=== PATIENT | female | born 1965 | race Caucasian/White ===

== ENCOUNTER 2024-06-20 13:36 | Emergency (ER) | payer OTHER, SELFPAY ==
[2024-06-20 13:45] VITALS: BP 152/90; PULSE 107; RESP 20; TEMP 36.6; O2SAT 100
[2024-06-20 14:48] LABS: Add Manual Diff / Slide Review NO; Basophils Absolute Auto 100 /uL (0-100); Basophils Percent Auto 0.5 % (0-2); Eosinophils Absolute Auto 0 /uL (0-450); Hematocrit 40.6 % (36-46); Hemoglobin 13.4 g/dL (12.0-16.0); Lymphocytes Absolute Auto 1100 /uL (1100-4500); Lymphocytes Percent Auto 9.4 % (25-40); Mean Corpuscular HGB Conc 32.9 % (30-36); Mean Corpuscular Volume 88.1 fL (80-100); Monocytes Absolute Auto 1000 /uL (0-900); Neutrophils Absolute Auto 9300 /uL (1500-7000); Neutrophils Percent Auto 81.1 % (50-75); Platelet Count 483 X10^3/uL (150-400); Red Blood Cell Count 4.61 X10^6/uL (4.0-5.2); Red Cell Distribution Width 15.1 % (11.6-14.8); White Blood Cell Count 11.4 X10^3/uL (4.5-11.0)
[2024-06-20] MEDS: LORazepam 2 MG/ML INJ 1 MG IV (14:52)
[2024-06-20 15:02] LABS: Acetaminophen < 10 ug/mL (10-30); Alanine Aminotransferase 16 IU/L (<35); Albumin 4.6 g/dL (3.5-5.0); Albumin Globulin Ratio 1.2 (1.0-2.8); Alkaline Phosphatase 78 U/L (38-126); Aspartate Aminotransferase 27 IU/L (14-36); BUN Creatinine Ratio 18.6 (6-22); Bilirubin Total 1.4 mg/dL (0.2-1.3); Blood Urea Nitrogen 13 mg/dL (7-17); Calcium 9.5 mg/dL (8.4-10.2); Carbon Dioxide 20 mmol/L (22-32); Chloride 105 mmol/L (98-107); Estimated Glomerular Filt Rate > 60 mL/min (>60); Ethanol (ETOH) < 10 mg/dL; Globulin 3.7 g/dL (1.7-4.1); Glucose 112 mg/dL (70-100); HEMOLYSIS < 15 (0-50); Potassium 3.5 mmol/L (3.4-5.1); Salicylate < 1.0 mg/dL (<20); Sodium 138 mmol/L (137-145); Total Protein 8.3 g/dL (6.3-8.2)
[2024-06-20 15:08] LABS: COVID19 -Nasal RAPID Negative (Negative)
--- NOTE | 2024-06-20 15:13 | ED_ITS ---
HPI - Psych General Chief Complaint: Psychiatric Symptoms Stated Complaint: Manic Time Seen by Provider: 06/20/24 14:15 History of Present Illness HPI Narrative: Patient 59-year-old healthy female history of depression anxiety presenting today with acute altered mental status changes. at bedside reports that she has been unemployed but got to job offers this week and was quite excited and taking 1 of them. They have 2 homes they live in [place] have a cabin in [place]. She and her mother were staying in a cabin before she started work and just to get away. However she has had insomnia and decline. Not really able to cooperate for exam or questioning. Intermittently screaming. She has never had an episode like this before. Her father has a history of bipolar. Related Data Home Medications Medication Instructions Recorded Confirmed bupropion HCl 150 mg 24 hr tablet, 150 mg PO DAILY 06/20/24 06/20/24 extended release escitalopram oxalate 5 mg tablet 5 mg PO DAILY 06/20/24 06/20/24 phentermine 37.5 mg PO DAILY 06/20/24 06/20/24 Allergies Allergy/AdvReac Type Severity Reaction Status Date / Time No Known Drug Allergies Allergy Verified 06/20/24 15:17 Exam Initial Vital Signs Initial Vital Signs: Vital Signs Temperature 97.8 F 06/20/24 13:45 Pulse Rate 107 H 06/20/24 13:45 Respiratory Rate 20 06/20/24 13:45 Blood Pressure 152/90 H 06/20/24 13:45 Pulse Oximetry 100 06/20/24 13:45 Oxygen Delivery Method Room Air 06/20/24 13:45 GENERAL: Alert responsive cooperative CARDIOVASCULAR: peripheral pulses in tact, cap refill <2 sec RESPIRATORY: No respiratory distress, speaks in full sentences without difficulty EXTREMITIES: Normal range of motion, no clubbing or edema. Neurovascularly intact NEUROLOGICAL: Moving all extremities no facial droop SKIN: Warm, dry, no petechiae, no rashes or lesions. Psych Appearance: grossly normal Speech and Movement: delayed speech Mood: anxious mood and irritable mood Affect: irritable affect Attitude: cooperative Course Orders Ordered: Discontinued Medications Lorazepam (Lorazepam 2 Mg/Ml Inj) 1 mg IV NOW ONE Stop: 06/20/24 14:21 Last Admin: 06/20/24 14:52 Dose: 1 mg Documented By: ELVIRA Vital Signs Vital signs: Vital Signs - 8 hr 06/20/24 13:45 Temperature 97.8 F Pulse Rate 107 H Respiratory Rate 20 Blood Pressure 152/90 H Pulse Oximetry 100 Oxygen Delivery Method Room Air MDM - Psych Lab Data 06/20/24 14:35 06/20/24 14:35 Labs: Lab Results 06/20/24 06/20/24 06/20/24 Range/Units 14:35 14:37 15:10 WBC 11.4 H (4.5-11.0) X10^3/uL RBC 4.61 (4.0-5.2) X10^6/uL Hgb 13.4 (12.0-16.0) g/dL Hct 40.6 (36-46) % MCV 88.1 (80-100) fL MCH 29.0 (26-34) PG MCHC 32.9 (30-36) % RDW 15.1 H (11.6-14.8) % Plt Count 483 H (150-400) X10^3/uL Neut % (Auto) 81.1 H (50-75) % Lymph % (Auto) 9.4 L (25-40) % Faulk % (Auto) 9.0 (3-14) % Eos % (Auto) 0.0 L (2-4) % Baso % (Auto) 0.5 (0-2) % Neut # (Auto) 9300 H (4074-9021) /uL Lymph # (Auto) 1100 (1370-3105) /uL Faulk # (Auto) 1000 H (0-900) /uL Eos # (Auto) 0 (0-450) /uL Baso # (Auto) 100 (0-100) /uL Sodium 138 (137-145) mmol/L Potassium 3.5 (3.4-5.1) mmol/L Chloride 105 (98-107) mmol/L Carbon Dioxide 20 L (22-32) mmol/L BUN 13 (7-17) mg/dL Creatinine 0.70 (0.52-1.04) mg/dL Estimated GFR > 60 (>60) mL/min BUN/Creatinine Ratio 18.6 (6-22) Glucose 112 H (70-100) mg/dL Calcium 9.5 (8.4-10.2) mg/dL Total Bilirubin 1.4 H (0.2-1.3) mg/dL AST 27 (14-36) IU/L ALT 16 (<35) IU/L Alkaline Phosphatase 78 (38-126) U/L Total Protein 8.3 H (6.3-8.2) g/dL Albumin 4.6 (3.5-5.0) g/dL Globulin 3.7 (1.7-4.1) g/dL Albumin/Globulin Ratio 1.2 (1.0-2.8) TSH 2.13 (0.47-4.68) uIU/mL Free T4 1.51 (0.78-2.19) ng/dL Urine RBC 0-1/hpf (0-5/HPF) Urine WBC 0-1/hpf (0-5/HPF) Ur Squamous Epith Cells 0-1 /hpf (0-5/HPF) Urine Bacteria Occasional (0-1) (None) Ur Culture Indicated? Cult not indicated Vol Urine Centrifuged 10ml (spun) Salicylates < 1.0 (<20) mg/dL U Opiates 300ng/mL cut Negative (Negative) Ur Oxycodone Screen Negative (Negative) Urine Methadone Screen Negative (Negative) Acetaminophen < 10 (10-30) ug/mL Ur Barbiturates Screen Negative (Negative) U Tricyclic Antidepress Negative (Negative) Ur Phencyclidine Scrn Negative (Negative) Ur Amphetamines Screen Positive H (Negative) U Methamphetamines Scrn Negative (Negative) Ur MDMA Scrn (Ecstasy) Negative (Negative) U Benzodiazepines Scrn Negative (Negative) Urine Cocaine Screen Negative (Negative) U Marijuana (THC) Screen Negative (Negative) Urine pH Normal (Normal) Urine Specific [place] Normal (Normal) Ethyl Alcohol < 10 ( - 10) mg/dL Ur Creatinine Normal (Normal) SARS-CoV-2 (PCR) Negative (Negative) Point of Care Testing Test Results Negative Urine Dip Bedside Urine Glucose Negative Bedside Urine Bilirubin - Negative Bedside Urine Ketone +++ 80 Urine Specific [place] 1.010 Bedside Urine Occult Blood +/- Bedside Urine pH 6.0 Bedside Urine Protein - Negative Bedside Urine Urobilinogen - Negative Bedside Urine Nitrite - Negative Bedside Urine Leukocytes +/- [address] scan - head: Radiologist's Impression: PROCEDURE: CT HEAD/BRAIN WO CON INDICATIONS: acute mental status change TECHNIQUE: Noncontrast 4.5 mm thick angled axial sections acquired from the foramen magnum to the vertex, with coronal and sagittal reformats. For radiation dose reduction, the following was used: automated exposure control, adjustment of mA and/or kV according to patient size. COMPARISON: None. FINDINGS: Image quality: Diagnostic. CSF spaces: Basal cisterns are patent. No extra-axial fluid collections. Ventricles are normal in size and shape. Brain: No midline shift. No intracranial masses or hemorrhage. Blood-white matter interface is normal. Skull and face: Calvarium and visualized facial bones are intact, without suspicious lesions. Sinuses: Visualized sinuses and mastoids are clear. IMPRESSION: No acute intracranial pathology. Dictated by: Ziyad Shay M.D. on 06/20/2024 at 15:49 MDM Narrative Medical decision making narrative: Patient 59-year-old female presenting today with altered mental status. She was given Ativan to help calm her down. It did actually work and she started mentating more appropriately. She reports that she started taking phentermine about 2 days ago. She has not slept. She actually had a similar reaction to this last time she took it but there were many other medications at that time as well. Head CT reviewed no intracranial mass Blood work reviewed no evidence of Toxicology or infection Urinalysis negative at bedside. Patient is able to have conversation she remembers no focal deficits. Both patient and feel good going home. Patient was also evaluated by social work. Patient has no thoughts of self-harm. This is thought to be due to medication reaction. Discharge Plan Departure Patient Disposition: Home Clinical Impression: Adverse effect of drug Activity Restrictions/Additional Instructions: *You have been diagnosed with adverse drug reaction *What to do: Do not take phentermine have a very adverse reaction so glad that you are feeling better *Continue to take medications as directed *Follow up with your primary care provider in 2-3 days or call [phone] *Return to ER if you should have increased confusion agitation or any new, worsening or concerning symptoms Prescriptions: No Action bupropion HCl 150 mg tablet extended release 24 hr 150 mg PO DAILY escitalopram oxalate 5 mg tablet 5 mg PO DAILY phentermine 37.5 mg PO DAILY Stand Alone Forms: Patient Portal/API
[2024-06-20 15:32] LABS: UR Morphine/Opiate cutoff 300 Negative (Negative); Ur Creatinine Normal (Normal); Ur Specific Gravity Normal (Normal); Urine Amphetamines Positive (Negative); Urine Barbiturates Negative (Negative); Urine Benzodiazepines Negative (Negative); Urine Cocaine Negative (Negative); Urine MDMA Negative (Negative); Urine Methadone Negative (Negative); Urine Methamphetamines Negative (Negative); Urine Oxycodone Negative (Negative); Urine Phencyclidine Negative (Negative); Urine Tetrahydrocannabinol Negative (Negative); Urine Tricyclic Antidepressant Negative (Negative); Urine pH Normal (Normal)
[2024-06-20 15:41] LABS: Urine Volume 10mL (spun)
[2024-06-20 15:43] LABS: Squamous Epithelial Cell Urine 0-1 /HPF (0-5/HPF); WBC Urine 0-1/HPF (0-5/HPF)
[2024-06-20 15:44] VITALS: BP 126/80; PULSE 99; RESP 16; TEMP 36.3; O2SAT 99
[2024-06-20 15:44] LABS: Bacteria Urine Occasional (0-1); Culture Indicated Urine Cult Not Indicated; RBC Urine 0-1/HPF (0-5/HPF)
[2024-06-20 16:07] LABS: Free T4, Direct Thyroxine 1.51 ng/dL (0.78-2.19)
[2024-06-20 16:21] LABS: Thyroid Stimulating Hormone 2.13 uIU/mL (0.47-4.68)
--- NOTE | 2024-06-20 16:50 | PC.NURSE ---
PROFESSOR OF FAMILY MEDICINE Note: CHIEF RADIATION THERAPIST is in the room with patient and spouse @[phone]
--- NOTE | 2024-06-20 17:24 | CM.SWNOTE ---
ED WRITING MANAGER Assessment Note: WRITING MANAGER - Travel Information [employer] Supervisor Assessment WRITING MANAGER/Travel Information Center Supervisor Assessment Time Spent with Patient Start date 06/20/24 Visit Start Time 16:20 End date 06/20/24 Visit End Time 17:00 Total time Care Management spent on 40 minutes patient visit-in minutes Mental Health Screening Include Onset, Duration, Intensity Presenting Problem Patient was brought in by EMS due to manic behavior. Per , pt was not eating or drinking for two days and has not slept in two days as well. Precipitating Event(s) Patient re-started a medication of phentermine as prescribed by her doctor for a weight loss care plan. Patient has all of her psychiatric medications ( escitalopram, buproprion, phentermine) prescribed by her primary care provider. Patient Strengths Patient is supported by her family, is at bedside during assessment. Current Behavioral Health Provider(s) None reported. Include Facility, Provider, Ph. # Psych. Hx Mental Health and Chemical Patient has a previous medical Dependency history of anxiety and depression. Family Hx of Behavioral Abuse Patient's father has a hx of bipolar disorder. Psychiatric Hospitalizations (date(s)/ None reported. location) Psychosocial information & Support Patient is a 59yo female, Systems resident of [place]. 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 Patient's , Steffen, is at bedside today. School/Work Patient is an stock analyst. She has been unemployed for 4 months and was recently offered a job . Legal Concerns Legal Matters - Outstanding Issues None reported. Mental Status Orientation (Person/Place/Time) AOx3 Stated Mood lazy Affect (Congruent with Mood?) Flat affect, congruent with mood Thought Content - Specify/Describe Per triage and report, Obsessions, Delusions, Hallucinations pt was expressing delusions of having a baby with Rory Musk and being the mother of her . During assessment, pt denied current hallucinations or delusions; explained that she has a hx of delusions when she was last prescribed phentermine. Thought Processes (Rfqxdkq-Gvnplahx-Elso Per triage and report, Tvedrnzx-Rxzdzcyn-Aqxuwxljas- pt was disorganized and Nbmylriwjywrcp-Gctrcmh-Hiwmsmbbjvnb- tangential. Thought Blocking) Currently, patient is logical and goal directed. Speech (Uarqtn-Fvoo-Uywprdu-Rapid-Soft- During triage, pt was having Loud-Pressured) rapid, nonsensical speech. During assessment, pt is speaking normally. Motor (Pilxqc-Gknkyjwmr-Xmhk-Other) Normal Insight (Tyrf-Qeva-Wplq/Limited) Good Judgement (Rocc-Fgxv-Difo/Limited) Good Impulse Control (Adequate-Impaired) Adequate Memory (Mhngfklug-Mlsbfw-Ecqeys, Intact Impaired-Intact) Concentration (Intact-Impaired) Intact Attention (Intact-Impaired) Intact Behavior (Appropriate-Inappropriate) Appropriate Additional Comment Patient is calm, cooperative and communicative during this assessment. Risk Assessment Suicidal Ideation (Plan) No Homicidal Ideation (Plan) No Intervention Intervention Patient was given 1mg of Ativan and was able to sleep for approximately 1 hour. WRITING MANAGER meets with patient and , Steffen. Patient explains she has been prescribed phentermine for a weightloss program and started taking them while she was on a trip with her mother in [place]. Patient reports she has taken this before and had a similar reaction. Patient explains she is in the process of establishing with a MH provider. Patient denies SI/HI and feels safe with discharging home, ceasing phentermine until she can follow up with her PCP on Sunday, 06/23. At this time, it is the opinion of this WRITING MANAGER that patient is safe to discharge with her family, follow up with her PCP. WRITING MANAGER informs ED provider, Dr. Brooks who indicates agreement. WRITING MANAGER informs NORMAN Carroll. Plan RA Plan Patient to discharge home when medically cleared. JOSESITO Garvin
[2024-06-20 17:27] VITALS: BP 115/88; PULSE 108; RESP 16; O2SAT 100
[2024-06-20 21:30] VITALS: BP 142/91; PULSE 84; RESP 20; O2SAT 100
--- NOTE | 2024-06-21 20:24 | PC.NURSE ---
Late entry, This RN here for both ED visits on 06/20/24, Pt was cooperative with care during first visit, during the second visit pt arrived and was resistive to care, unable to follow directions, thrashing and flopping her body. She was grabbing at family and staff. Pt was yelling at family that was only inches from her. Pt was rapidly repeating statements. Unable to get Temp check at time of arrival. Pt was initially place on mattress on the floor for her own safety. Family remained in the room with the patient until she was calm and sleeping, pt slept a short while after receiving IM meds.
== END 2024-06-20 17:39 | disposition home or self-care (01) ==
PROVIDERS: Emergency Provider Emergency Medicine
DX: F30.9 Manic episode, unspecified (principal); T50.5X5A Adverse effect of appetite depressants, initial encounter; Z11.52 Encounter for screening for COVID-19; G47.00 Insomnia, unspecified; F15.90 Other stimulant use, unspecified, uncomplicated
CPT/HCPCS: 70450; 80053; 80305; 80320; 80329; 81003; 81015; 81025; 84439; 84443; 85025; 87635; 96374; 99284; G0480; J1630; J2060

== ENCOUNTER 2024-06-20 21:05 | Observation (INO) | payer OTHER, SELFPAY ==
--- NOTE | 2024-06-20 21:15 | ED.AMS ---
HPI - Altered Mental Status <Nicki Jessica - Last Filed: 06/24/24 07:24> General Chief Complaint: Psychiatric Symptoms Stated Complaint: reaction to medicine Time Seen by Provider: 06/20/24 21:10 Source: patient, family, RN notes reviewed and old records reviewed Mode of arrival: Family Vehicle Limitations: no limitations History of Present Illness HPI narrative: 59-year-old female history of depression and anxiety acutely altered mental status. Has been at bedside she was here earlier today altered screaming somewhat manic like. Has had insomnia decline. Recently restarted medication phentermine for weight loss. Family states she would not quite as an extensive reaction but similar reaction when she took it in the past. Does have a father who had bipolar. Patient has not had episodes to this extent. She received Ativan here earlier today had significant improvement and was discharged back into the care of her family. Since then she sort of started to ramp up he thinks Ativan has worn off. Recreational drug or alcohol use noted by family. Patient is acutely yelling, she is not particularly aggressive but is somewhat agitated. Related Data Home Medications Medication Instructions Recorded Confirmed bupropion HCl 150 mg 24 hr tablet, 150 mg PO DAILY 06/20/24 06/20/24 extended release escitalopram oxalate 5 mg tablet 5 mg PO DAILY 06/20/24 06/20/24 Allergies Allergy/AdvReac Type Severity Reaction Status Date / Time phentermine AdvReac Intermediate AMS - Verified 06/22/24 06:54 SCREAMING, SEVERE AGITATION Review of Systems <Nicki Jessica - Last Filed: 06/24/24 07:24> Review of Systems ROS Unobtainable: All systems reviewed & are unremarkable except as noted in HPI and below Patient History <Nicki Lev Janeskathleen - Last Filed: 06/24/24 07:24> Social History household members: spouse Smoking Status: Unknown if ever smoked alcohol intake: current Exam <Nicki Lev Jessica DO - Last Filed: 06/24/24 07:24> Narrative Exam Narrative: GENERAL: Alert and oriented to self, patient interacts with has been, she does not really answer questions clearly, tangential thoughts, patient is shouting. She was being restrained by her family currently. HEENT: Head normocephalic, atraumatic, EOMI, pupils reactive, face symmetric, moist mucous membranes NECK: Supple, full range of motion CARDIOVASCULAR: Regular rate and rhythm without murmurs, rubs or gallops. RESPIRATORY: Breath sounds equal bilaterally, no wheezes rales or rhonchi. ABDOMEN: Soft, nontender. Normoactive bowel sounds all 4 quadrants. No guarding or rebound, rigidity, no mass : No CVA tenderness EXTREMITIES: Normal range of motion, no clubbing or edema. Neurovascularly intact NEUROLOGICAL: Cranial nerves II through XII grossly intact. Moving all extremities SKIN: Warm, dry, no petechiae, no rashes or lesions PSYCH: Patient has not expressed any suicidal ideation or intent to harm others. Has been shouting, tangential thoughts appears somewhat manic. Initial Vital Signs Initial Vital Signs: Vital Signs Temperature 97.7 F 06/21/24 04:29 Pulse Rate 84 06/21/24 04:29 Respiratory Rate 16 06/21/24 04:29 Pulse Oximetry 99 06/21/24 04:29 Oxygen Delivery Method Room Air 06/21/24 04:29 <Fabi Brooks, DO - Last Filed: 06/21/24 14:28> Initial Vital Signs Initial Vital Signs: Vital Signs Temperature 97.7 F 06/21/24 04:29 Pulse Rate 84 06/21/24 04:29 Respiratory Rate 16 06/21/24 04:29 Pulse Oximetry 99 06/21/24 04:29 Oxygen Delivery Method Room Air 06/21/24 04:29 Course <Nicki Jessica, DO - Last Filed: 06/24/24 07:24> Orders Ordered: Discontinued Medications Acetaminophen (Acetaminophen 325 Mg Tablet) 650 mg PO Q6H PRN PRN Reason: Fever/Mild Pain (1-3) Haloperidol (Haloperidol 5 Mg/Ml Vial) 5 mg IM NOW ONE Stop: 06/20/24 21:41 Last Admin: 06/20/24 21:44 Dose: 5 mg Documented By: ELVIRA Haloperidol (Haloperidol 5 Mg/Ml Vial) 2 mg IV Q2HR PRN PRN Reason: Agitation Sodium Chloride (Normal Saline 0.9%) 1,000 mls @ 100 mls/hr IV CONT ESTEE Last Admin: 06/21/24 13:39 Dose: Not Given Documented By: FELIX Lorazepam (Lorazepam 2 Mg/Ml Inj) 1 mg IM NOW ONE Stop: 06/20/24 21:14 Last Admin: 06/20/24 21:18 Dose: 1 mg Documented By: ELVIRA Lorazepam (Lorazepam 0.5 Mg Tablet) 2 mg PO NOW ONE Stop: 06/21/24 03:02 Last Admin: 06/21/24 03:08 Dose: 2 mg Documented By: JANNY Lorazepam (Lorazepam 0.5 Mg Tablet) 1 mg PO NOW ONE Stop: 06/21/24 10:05 Last Admin: 06/21/24 11:25 Dose: 1 mg Documented By: JUSTINA Lorazepam (Lorazepam 2 Mg/Ml Inj) 2 mg IV NOW ONE Stop: 06/21/24 12:05 Last Admin: 06/21/24 13:15 Dose: 1 mg Documented By: JUSTINA Lorazepam (Lorazepam 2 Mg/Ml Inj) 2 mg IM NOW ONE Stop: 06/21/24 12:09 Last Admin: 06/21/24 12:17 Dose: 2 mg Documented By: JUSTINA Lorazepam (Lorazepam 2 Mg/Ml Inj) 1 mg IV Q4HR PRN PRN Reason: Anxiety or agitation Naloxone HCl (Naloxone 0.4 Mg/Ml Vial) 0.2 mg IV Q2MIN PRN PRN Reason: Opiate Reversal Vital Signs Vital signs: Vital Signs - 8 hr 06/21/24 11:33 Pulse Rate 105 H Blood Pressure 147/77 H Pulse Oximetry 99 Oxygen Delivery Method Room Air <Fabi Brooks DO - Last Filed: 06/21/24 14:28> Orders Ordered: Discontinued Medications Acetaminophen (Acetaminophen 325 Mg Tablet) 650 mg PO Q6H PRN PRN Reason: Fever/Mild Pain (1-3) Haloperidol (Haloperidol 5 Mg/Ml Vial) 5 mg IM NOW ONE Stop: 06/20/24 21:41 Last Admin: 06/20/24 21:44 Dose: 5 mg Documented By: ELVIRA Haloperidol (Haloperidol 5 Mg/Ml Vial) 2 mg IV Q2HR PRN PRN Reason: Agitation Sodium Chloride (Normal Saline 0.9%) 1,000 mls @ 100 mls/hr IV CONT ESTEE Last Admin: 06/21/24 13:39 Dose: Not Given Documented By: FELIX Lorazepam (Lorazepam 2 Mg/Ml Inj) 1 mg IM NOW ONE Stop: 06/20/24 21:14 Last Admin: 06/20/24 21:18 Dose: 1 mg Documented By: ELVIRA Lorazepam (Lorazepam 0.5 Mg Tablet) 2 mg PO NOW ONE Stop: 06/21/24 03:02 Last Admin: 06/21/24 03:08 Dose: 2 mg Documented By: JANNY Lorazepam (Lorazepam 0.5 Mg Tablet) 1 mg PO NOW ONE Stop: 06/21/24 10:05 Last Admin: 06/21/24 11:25 Dose: 1 mg Documented By: JUSTINA Lorazepam (Lorazepam 2 Mg/Ml Inj) 2 mg IV NOW ONE Stop: 06/21/24 12:05 Last Admin: 06/21/24 13:15 Dose: 1 mg Documented By: JUSTINA Lorazepam (Lorazepam 2 Mg/Ml Inj) 2 mg IM NOW ONE Stop: 06/21/24 12:09 Last Admin: 06/21/24 12:17 Dose: 2 mg Documented By: JUSTINA Lorazepam (Lorazepam 2 Mg/Ml Inj) 1 mg IV Q4HR PRN PRN Reason: Anxiety or agitation Naloxone HCl (Naloxone 0.4 Mg/Ml Vial) 0.2 mg IV Q2MIN PRN PRN Reason: Opiate Reversal Vital Signs Vital signs: Vital Signs - 8 hr 06/21/24 11:33 Pulse Rate 105 H Blood Pressure 147/77 H Pulse Oximetry 99 Oxygen Delivery Method Room Air MDM - Altered Mental Status <Nicki Jessica, - Last Filed: 06/24/24 07:24> Lab Data 06/20/24 23:55 06/20/24 23:55 Labs: Lab Results 06/20/24 06/20/24 Range/Units 23:50 23:55 WBC 13.2 H (4.5-11.0) X10^3/uL RBC 4.40 (4.0-5.2) X10^6/uL Hgb 12.9 (12.0-16.0) g/dL Hct 38.8 (36-46) % MCV 88.4 (80-100) fL MCH 29.2 (26-34) PG MCHC 33.1 (30-36) % RDW 15.1 H (11.6-14.8) % Plt Count 465 H (150-400) X10^3/uL Neut % (Auto) 78.9 H (50-75) % Lymph % (Auto) 11.2 L (25-40) % [place] % (Auto) 9.5 (3-14) % Eos % (Auto) 0.0 L (2-4) % Baso % (Auto) 0.4 (0-2) % Neut # (Auto) 91949 H (6816-9687) /uL Lymph # (Auto) 1500 (2612-3921) /uL [place] # (Auto) 1200 H (0-900) /uL Eos # (Auto) 0 (0-450) /uL Baso # (Auto) 100 (0-100) /uL Sodium 137 (137-145) mmol/L Potassium 3.6 (3.4-5.1) mmol/L Chloride 106 (98-107) mmol/L Carbon Dioxide 21 L (22-32) mmol/L BUN 21 H (7-17) mg/dL Creatinine 1.14 H (0.52-1.04) mg/dL Estimated GFR 56 L (>60) mL/min BUN/Creatinine Ratio 18.4 (6-22) Glucose 107 H (70-100) mg/dL Calcium 9.1 (8.4-10.2) mg/dL Total Bilirubin 1.0 (0.2-1.3) mg/dL AST 34 (14-36) IU/L ALT 20 (<35) IU/L Alkaline Phosphatase 69 (38-126) U/L Total Protein 7.8 (6.3-8.2) g/dL Albumin 4.3 (3.5-5.0) g/dL Globulin 3.5 (1.7-4.1) g/dL Albumin/Globulin Ratio 1.2 (1.0-2.8) TSH 1.89 (0.47-4.68) uIU/mL U Opiates 300ng/mL cut Negative (Negative) Ur Oxycodone Screen Negative (Negative) Urine Methadone Screen Negative (Negative) Ur Barbiturates Screen Negative (Negative) U Tricyclic Antidepress Negative (Negative) Ur Phencyclidine Scrn Negative (Negative) Ur Amphetamines Screen Positive H (Negative) U Methamphetamines Scrn Negative (Negative) Ur MDMA Scrn (Ecstasy) Negative (Negative) U Benzodiazepines Scrn Positive H (Negative) Urine Cocaine Screen Negative (Negative) U Marijuana (THC) Screen Negative (Negative) Urine pH Normal (Normal) Urine Specific [place] Normal (Normal) Ethyl Alcohol < 10 ( - 10) mg/dL Ur Creatinine Normal (Normal) MDM Narrative Medical decision making narrative: 59-year-old female may have had adverse reaction to phentermine sounds like she has had a similar episode in the past when she had it but not to this extent according to family. Patient had head CT imaging here earlier today which was negative. Labs did not show any other clear change. Amphetamines were positive on her urine drug screen which fits with restarting phentermine recently. According to family she had not this exact type response but did have similar type responds when taking it in the past. Tylenol, salicylates and ETOH were negative. COVID was negative. Family notes she has not been sleeping she has had maybe an hour or 2 here and there but has not had any prolonged period of sleep for some time. Patient was given 1 mg of Ativan IM. We will reassess and see if patient needs additional medication. Ativan was helpful but patient is still somewhat agitated was given additional dose of Haldol. Patient slept for a few hours has now woken, she is calmer but still little bit agitated. She was somewhat paranoid. <Fabi Brooks, DO - Last Filed: 06/21/24 14:28> Lab Data Labs: Lab Results 06/20/24 06/20/24 Range/Units 23:50 23:55 WBC 13.2 H (4.5-11.0) X10^3/uL RBC 4.40 (4.0-5.2) X10^6/uL Hgb 12.9 (12.0-16.0) g/dL Hct 38.8 (36-46) % MCV 88.4 (80-100) fL MCH 29.2 (26-34) PG MCHC 33.1 (30-36) % RDW 15.1 H (11.6-14.8) % Plt Count 465 H (150-400) X10^3/uL Neut % (Auto) 78.9 H (50-75) % Lymph % (Auto) 11.2 L (25-40) % [place] % (Auto) 9.5 (3-14) % Eos % (Auto) 0.0 L (2-4) % Baso % (Auto) 0.4 (0-2) % Neut # (Auto) 65908 H (4524-9020) /uL Lymph # (Auto) 1500 (6782-2227) /uL [place] # (Auto) 1200 H (0-900) /uL Eos # (Auto) 0 (0-450) /uL Baso # (Auto) 100 (0-100) /uL Sodium 137 (137-145) mmol/L Potassium 3.6 (3.4-5.1) mmol/L Chloride 106 (98-107) mmol/L Carbon Dioxide 21 L (22-32) mmol/L BUN 21 H (7-17) mg/dL Creatinine 1.14 H (0.52-1.04) mg/dL Estimated GFR 56 L (>60) mL/min BUN/Creatinine Ratio 18.4 (6-22) Glucose 107 H (70-100) mg/dL Calcium 9.1 (8.4-10.2) mg/dL Total Bilirubin 1.0 (0.2-1.3) mg/dL AST 34 (14-36) IU/L ALT 20 (<35) IU/L Alkaline Phosphatase 69 (38-126) U/L Total Protein 7.8 (6.3-8.2) g/dL Albumin 4.3 (3.5-5.0) g/dL Globulin 3.5 (1.7-4.1) g/dL Albumin/Globulin Ratio 1.2 (1.0-2.8) TSH 1.89 (0.47-4.68) uIU/mL U Opiates 300ng/mL cut Negative (Negative) Ur Oxycodone Screen Negative (Negative) Urine Methadone Screen Negative (Negative) Ur Barbiturates Screen Negative (Negative) U Tricyclic Antidepress Negative (Negative) Ur Phencyclidine Scrn Negative (Negative) Ur Amphetamines Screen Positive H (Negative) U Methamphetamines Scrn Negative (Negative) Ur MDMA Scrn (Ecstasy) Negative (Negative) U Benzodiazepines Scrn Positive H (Negative) Urine Cocaine Screen Negative (Negative) U Marijuana (THC) Screen Negative (Negative) Urine pH Normal (Normal) Urine Specific [place] Normal (Normal) Ethyl Alcohol < 10 ( - 10) mg/dL Ur Creatinine Normal (Normal) [facility] Narrative Medical decision making narrative: 59-year-old female may have had adverse reaction to phentermine sounds like she has had a similar episode in the past when she had it but not to this extent according to family. Patient had head CT imaging here earlier today which was negative. Labs did not show any other clear change. Amphetamines were positive on her urine drug screen which fits with restarting phentermine recently. According to family she had not this exact type response but did have similar type responds when taking it in the past. Tylenol, salicylates and ETOH were negative. COVID was negative. Family notes she has not been sleeping she has had maybe an hour or 2 here and there but has not had any prolonged period of sleep for some time. Patient was given 1 mg of Ativan IM. We will reassess and see if patient needs additional medication. Ativan was helpful but patient is still somewhat agitated was given additional dose of Haldol. Patient slept for a few hours has now woken, she is calmer but still little bit agitated. She was somewhat paranoid. Dr. Brooks-patient signed out to me by Dr. Jessica I have seen evaluated patient myself this morning I actually took care for yesterday. This is a drug reaction. She has had a couple doses of Ativan here and Haldol. She has been groggy. Now sitting on edge of bed she actually is able to have conversation she seems to be making rational decisions. Asked if she wants another dose of Ativan she said no she does not want to be this groggy. Very are waiting for repeat social work consultation at 11:00 a.m. she is good family support. They talked about admission however I think this is just going to take time. Not suicidal or homicidal I do not think psych placement is appropriate. I do think it is drug reaction. Family every agreeable to go home prescription for Ativan trying to make it home to [place]. Patient was discharged, got into the car started driving in the parking lot she unbuckled and opened the car door while the vehicle was moving. She is not safe to discharge unsafe to travel in a car at this time. She has not combative. She has been in the emergency department for 16 hours, this visit in 2-[address] Arvizu accepts to observation Patient given IM Ativan so that IV could be started. Discharge Plan Departure Patient Disposition: Admitted as Observation Clinical Impression: Adverse effect of drug Admit Date/Time: 06/21/24 12:04 Admit Provider: Kwadwo Arvizu
[2024-06-20] MEDS: LORazepam 2 MG/ML INJ 1 MG IM (21:18)
--- NOTE | 2024-06-20 21:42 | PC.NURSE ---
Addendum entered by Roseanna Miller CNA 06/21/24 06:30: SOFTWARE ADMINISTRATOR note: Patient is sitting up intermittently, bolt straight up. Patient wants to get up, but mumbling reasons why. It takes the convincing of her and I to get back to the lay down position. Patient is sitting up every 2-4 minutes. Addendum entered by Roseanna Miller CNA 06/21/24 02:51: CHERRI note: Patient is siting at the edge of the bed, she has her eyes closed and talking. When she hears a child cry she turns her head in the direction of the child and say the baby is infinite. Patient refuses to lay down. Then patient laid down. Patient is expressing that she wants to help the baby, and she needs to be with the baby. Patient's is at bedside trying to keep the patient in bed. Addendum entered by Roseanna Miller CNA 06/20/24 21:44: CHERRI note: Family at bedside holding her hands and helping try to keep her calm. Original Note: CHERRI note: Patient is frantically repeating things. Patient is repeating things in series of 15. Luke I am your father... impression impression impression impression.
[2024-06-20] MEDS: HALOPERIDOL 5 MG/ML VIAL IM (21:44)
[2024-06-21 00:23] LABS: Add Manual Diff / Slide Review NO; Basophils Absolute Auto 100 /uL (0-100); Basophils Percent Auto 0.4 % (0-2); Eosinophils Absolute Auto 0 /uL (0-450); Hematocrit 38.8 % (36-46); Hemoglobin 12.9 g/dL (12.0-16.0); Lymphocytes Absolute Auto 1500 /uL (1100-4500); Lymphocytes Percent Auto 11.2 % (25-40); Mean Corpuscular HGB Conc 33.1 % (30-36); Mean Corpuscular Hemoglobin 29.2 PG (26-34); Mean Corpuscular Volume 88.4 fL (80-100); Monocytes Absolute Auto 1200 /uL (0-900); Monocytes Percent Auto 9.5 % (3-14); Neutrophils Absolute Auto 10400 /uL (1500-7000); Neutrophils Percent Auto 78.9 % (50-75); Platelet Count 465 X10^3/uL (150-400); Red Cell Distribution Width 15.1 % (11.6-14.8); White Blood Cell Count 13.2 X10^3/uL (4.5-11.0)
[2024-06-21 00:27] LABS: Alanine Aminotransferase 20 IU/L (<35); Albumin 4.3 g/dL (3.5-5.0); Albumin Globulin Ratio 1.2 (1.0-2.8); Alkaline Phosphatase 69 U/L (38-126); Aspartate Aminotransferase 34 IU/L (14-36); BUN Creatinine Ratio 18.4 (6-22); Blood Urea Nitrogen 21 mg/dL (7-17); Calcium 9.1 mg/dL (8.4-10.2); Carbon Dioxide 21 mmol/L (22-32); Chloride 106 mmol/L (98-107); Estimated Glomerular Filt Rate 56 mL/min (>60); Ethanol (ETOH) < 10 mg/dL; Globulin 3.5 g/dL (1.7-4.1); Glucose 107 mg/dL (70-100); HEMOLYSIS 37 (0-50); Potassium 3.6 mmol/L (3.4-5.1); Sodium 137 mmol/L (137-145); Total Protein 7.8 g/dL (6.3-8.2)
[2024-06-21 00:57] LABS: TSH w/ Reflex to FT4 1.89 uIU/mL (0.47-4.68)
--- NOTE | 2024-06-21 01:24 | PC.NURSE ---
Pt is awake and walked in the hallway. She is currently in the room standing, has stated that she doesn't know why she is here and doesn't remember getting to the ED. She has also stated that she does not feel like she can trust the staff at times.
[2024-06-21] MEDS: LORazepam 0.5 MG TABLET 2 MG PO (03:08)
--- NOTE | 2024-06-21 03:20 | PC.NURSE ---
pt sitting on edge of stretcher, at bedside pt is impulsive, does not open eyes but is aware of surroundings, restless, mumbling with no complete train of thought noted. medication ordered to help pt relax attempting to help get the pt to take her medication. pt will allow the pill to be place in her mouth and then will spit the pill out and then refuses to open her mouth, after several minutes, able to get pt to take medicaiton with some ice cream
[2024-06-21 04:29] VITALS: PULSE 84; RESP 16; TEMP 36.5; O2SAT 99
[2024-06-21 05:09] LABS: UR Morphine/Opiate cutoff 300 Negative (Negative); Ur Creatinine Normal (Normal); Ur Specific Gravity Normal (Normal); Urine Amphetamines Positive (Negative); Urine Barbiturates Negative (Negative); Urine Benzodiazepines Positive (Negative); Urine Cocaine Negative (Negative); Urine MDMA Negative (Negative); Urine Methadone Negative (Negative); Urine Methamphetamines Negative (Negative); Urine Oxycodone Negative (Negative); Urine Phencyclidine Negative (Negative); Urine Tetrahydrocannabinol Negative (Negative); Urine Tricyclic Antidepressant Negative (Negative); Urine pH Normal (Normal)
[2024-06-21 05:56] VITALS: BP 169/84
--- NOTE | 2024-06-21 10:20 | PC.NURSE ---
Patient walking around with merissa, refusing to stay in bed. She requires a stand by assist and due to level of disorientation, is a fall risk. I spoke with Dr. Brooks, who ordered 1 mg PO ativan. Merissa Parrina managed to get patient to sit in the bed. She refuses to swallow the ativan at this time. Holding PO ativan at this time. Will reevaluate need for medication later if patient gets out of bed again.
--- NOTE | 2024-06-21 11:14 | PC.NURSE ---
Patient continues to refuse ativan PO or food or water form ER staff. She needs constant reminders and verbal negotiating to keep the patient in bed and safe. at bedside attempting to get patient to eat, drink, and take medication.
[2024-06-21] MEDS: LORazepam 0.5 MG TABLET 1 MG PO (11:25)
[2024-06-21 11:33] VITALS: BP 147/77; PULSE 105; O2SAT 99
--- NOTE | 2024-06-21 11:45 | CM.SWNOTE ---
ED CANDLE EXTRUSION MACHINE OPERATOR Note Patient is 59 y/o female who returns to ED after previous presentation earlier yesterday due to adverse reaction to Phentermine rx the other day. Patient's spouse and son present in the ED request to take patient back home towards [facility] and preference to go to a neighboring ED if needed. ED provider medically cleared patient and prescribed patient with PRN Ativan, rx sent to requested pharmacy. ED CANDLE EXTRUSION MACHINE OPERATOR Kimberly evaluated patient and spoke with family yesterday and deemed patient safe for d/c upon medical clearance as well, patient d/c'd ED yesterday and returned several hours later. Patient's spouse states that they have more supports in the [place] area and several of patient's family members are nurses. It is reported that they plan to provide round the clock care for patient until patient is at baseline. Patient believes it is March 2024, and occasionally opens her eyes and states she is trying to wake up. Plan: Patient's family preference to take patient home upon medical clearance, family to monitor patient and chart picker rx, patient to return to nearby ED if symptoms worsen. Juliana Mayers, PURCHASING ADMINISTRATIVE ASSISTANT
[2024-06-21] MEDS: LORazepam 2 MG/ML INJ IM (12:17)
--- NOTE | 2024-06-21 12:18 | P.HP_ITS ---
History of Present Illness History of Present Illness Date Patient Seen: 06/21/24 Time Patient Seen: 15:00 Chief complaint: reaction to medicine Narrative: The patient was transferred to the floor without family members present. She was awake but sedated and not really speaking. History from the emergency physician is as follows: She was a 59-year-old female with a history of depression and anxiety who lives outside of [place] but has a 2nd home in this area. She was brought by family for an acutely altered mental status. The patient has been having intermittent episodes of screaming and acting somewhat manic. The patient also has had escalation of recent insomnia. Notably, she was recently started phentermine for weight loss. She was said to have had a similar reaction when using phentermine in the past. The patient received multiple doses of Ativan and was observed in the ED for over 12 hours. Ultimately the patient was improving but was not stable enough to be discharge. Her agitation was improving. The patient was not able to provide any further details. [facility] Social History household members: spouse Smoking Status: Unknown if ever smoked alcohol intake: current Meds Home Medications and Allergies Home Medications Medication Instructions Recorded Confirmed Type bupropion HCl 150 mg 24 hr tablet, 150 mg PO DAILY 06/20/24 06/20/24 History extended release escitalopram oxalate 5 mg tablet 5 mg PO DAILY 06/20/24 06/20/24 History phentermine 37.5 mg PO DAILY 06/20/24 06/20/24 History lorazepam 1 mg tablet (Ativan) 1 mg PO TID PRN agitation #5 tabs 06/21/24 Rx lorazepam 1 mg tablet (Ativan) 1 mg PO TID PRN agitation #6 tabs 06/21/24 Rx Allergies Allergy/AdvReac Type Severity Reaction Status Date / Time No Known Drug Allergies Allergy Verified 06/20/24 15:17 Review of Systems Review of Systems Narrative: Not obtainable due to her lack of participation in the history. Exam Vital Signs (past 8 hours): - 06/21/24 04:29 06/21/24 05:56 06/21/24 11:33 Temperature 97.7 F Pulse Rate 84 105 H Respiratory Rate 16 Blood Pressure 169/84 H 147/77 H Pulse Oximetry 99 99 Oxygen Delivery Method Room Air Room Air Oxygen Delivery Method Room Air Narrative Exam Narrative: She was awake and appears to be comfortable. She does appear drowsy with her eyes half open. She was in no acute distress. She was not speaking but does follow commands. Atraumatic skull, EOMI. There has no facial droop. Her neck is supple, no adenopathy. Lungs are clear, normal rate and effort. Heart is regular. Abdomen is soft, nondistended. Extremities are free of edema. She moves all extremities spontaneously. There are no swollen joints or deformities noted. She was tachycardic. Skin is free of rash or lesions. There has no evidence of trauma. Judgment can not be assessed. Objective Imaging CT scan - head: Radiologist's impression: No acute intracranial pathology. Labs 06/20/24 23:55 06/20/24 23:55 Labs: Laboratory Results - last 24 hr 06/20/24 06/20/24 23:50 23:55 WBC 13.2 H RBC 4.40 Hgb 12.9 Hct 38.8 MCV 88.4 MCH 29.2 MCHC 33.1 RDW 15.1 H Plt Count 465 H Neut % (Auto) 78.9 H Lymph % (Auto) 11.2 L [place] % (Auto) 9.5 Eos % (Auto) 0.0 L Baso % (Auto) 0.4 Neut # (Auto) 09825 H Lymph # (Auto) 1500 [place] # (Auto) 1200 H Eos # (Auto) 0 Baso # (Auto) 100 Sodium 137 Potassium 3.6 Chloride 106 Carbon Dioxide 21 L BUN 21 H Creatinine 1.14 H Estimated GFR 56 L BUN/Creatinine Ratio 18.4 Glucose 107 H Calcium 9.1 Total Bilirubin 1.0 AST 34 ALT 20 Alkaline Phosphatase 69 Total Protein 7.8 Albumin 4.3 Globulin 3.5 Albumin/Globulin Ratio 1.2 TSH 1.89 U Opiates 300ng/mL cut Negative Ur Oxycodone Screen Negative Urine Methadone Screen Negative Ur Barbiturates Screen Negative U Tricyclic Antidepress Negative Ur Phencyclidine Scrn Negative Ur Amphetamines Screen Positive H U Methamphetamines Scrn Negative Ur MDMA Scrn (Ecstasy) Negative U Benzodiazepines Scrn Positive H Urine Cocaine Screen Negative U Marijuana (THC) Screen Negative Urine pH Normal Urine Specific [place] Normal Ethyl Alcohol < 10 Ur Creatinine Normal Assessment & Plan Assessment & Plan narrative: 1. Acute toxic encephalopathy, present on admission and active. 2. Possible reaction to phentermine with drug toxidrome, present on admission and active. 3. The possibility remains for mental illness with acute escalation, continue to monitor. Plan: -the patient will be observed with minimal medications for sedation given only for severe agitation. -her mental status will be monitored overnight. -if she fails to improve and can comply we will pursue advanced imaging with MRI of the brain tomorrow. -we will discuss any other history with family when they are present. Time-Based Coding :: 25 min spent with patient and on the chart (including review of chart, obtaining history, exam, reviewing outside data, placing orders, documenting exam and treatment plan, and counseling patient) on 06/21. Quality MIPS - Admit The patient?s Advance Care plan is not present because I confirmed today that the patient does not wish or was not able to name a surrogate decision maker or provide an Advance Care Plan.: Yes MIPS - Meds 'Current medications' to include all prescriptions, [id number] products, herbals, cannabis/cannabidiol products, and vitamin/mineral/dietary (nutritional) supplements. I have utilized all available resources to obtain, update, or review the patient?s current medications. [If Yes, STOP here]: Yes
--- NOTE | 2024-06-21 12:18 | PC.NURSE ---
Patient DC'd with spouse and son to car in wheelchair, they tried to drive away but then came back and reported they were concerned about taking her safely because she was uncooperative and trying to get out of the car. Patient's returned to room 13, attempting admission.
--- NOTE | 2024-06-21 12:52 | CM.IDA ---
Initial DCP Assessment Note Patient is 59 y/o female who presents to the ED three times in the last 24 hours due to family's concern for patient's adverse side effects of prescribed Phentermine for weight loss care plan. Patient's and son attempted to take patient home earlier but patient opened the car door while it was moving and they brought back to the ED. Patient has PCP is Kinstonharmeet Morfin, PCP listed on Dam[facility] Is Dr. Ca Jolley, patient has [employer] insurance. Please see Kimberly's SHINGLE BOLT CUTTER Assessment from yesterday and ED SHINGLE BOLT CUTTER note from earlier today. Upon patient's return to the ED, ED provider Dr. Brooks consulted with hospitalist Dr. Arvizu and patient has been admitted for observation as patient has had two unsuccessful discharges to home and is requiring further medical observation and treatment to address patient's altered state. 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 Patient was staying with her mother at their [place] on [address] when patient started having adverse side effects. Patient has had limited sleep in the last 24 hours, there is concern for patient's delusions and paranoia. Patient has been trying to walk and repeating statements of time to wake up. Patient wavers in and out of lucidity, patient A/O to self, knows the year, patient presents with closed eyes. Patient has a PCP appt on Sunday06/23/24 and patient is in the process of establishing outpatient care. Patient's spouse and son were at bedside for most of the time while patient was in the ED but they needed to step out and care for their dogs, spouse likely to return later this evening and tomorrow morning. Patient has been given ativan in the ED and ate seldom food, likely patient needs to rest, hydrate and eat to process the Phentermine through her system. Plan: patient to be admitted to acute care for observation, patient to d/c to home with family upon medical clearance and to follow up with outpatient providers. Juliana Mayers [facility] Discharge Planning/Care Management CM Discharge Assessment Start: 06/21/24 12:16 Freq: Status: Active Protocol: Document 06/21/24 12:48 LN (Rec: 06/21/24 12:52 LN [id number]) Discharge Planning Assessment Assigned Machine Leather Trimmer HUMBERTO Andrews DPOA/Assigned Designee Name Tadeo Serna - Contact Information [phone] Advance Directives? No Advance Directives on File No History Provided By Family Member,Medical Record Has Patient been admitted in last 30 No days? Prior Living Arrangements House Household Members spouse Type of transporation used prior to Drives own vehicle admit Independent with ADL's Yes: at baseline Is patient alert and oriented? No: not currently, typically A /Ox4 at baseline Discharge Plan Home Transportation Arrangement With spouse or son upon d/c. Referrals Initiated None needed Review Status In Process Please Provide Date Initial DC 06/21/24 Assessment Was Performed ED Psychiatric Symptoms Assessment Start: 06/20/24 21:32 Freq: Q2H Status: Active Protocol: Document 06/20/24 21:35 DKB (Rec: 06/20/24 21:37 DKB [id number]) Psychiatric Symptoms Assessment Symptoms/Complaint Altered Mental Status Duration Constant History Of Same Yes Context New Medications Associated Psychiatric Symptoms Delusions,Racing Thoughts Associated Symptoms Confusion,Insomnia Level of Observation Continuous Safety Interventions Constant observation,Gurney removed from room,Explanation of process given to patient, Mattress placed on floor Level of Consciousness Disoriented,Restless Patient Orientation Name Patient Behavior/Mood Restless,Talkative Ability to Follow Directions Poor Affect Description Elated,Euphoric Patient Appearance Disheveled Delusion Description Bizarre,Grandiose,Present Thought Process: Disorganized,Perseveration, Flight of ideas,Illogical Nausea/Vomiting None Document 06/20/24 23:32 DKB (Rec: 06/21/24 01:23 DKB [id number]) Psychiatric Symptoms Assessment Patient sleeping - not awakened for Yes symptom reassessment Document 06/21/24 01:30 KH (Rec: 06/21/24 04:09 KH [id number]) Psychiatric Symptoms Assessment Symptoms/Complaint Altered Mental Status Duration Constant Context New Medications Details of Plan no change, pt sitting on edge of stretcher, pt leery of staff to come sit with pt Level of Consciousness Alert,Inappropriate,Restless Patient Orientation Name Patient Behavior/Mood Confused,Impulsive,Restless, Suspicious Ability to Follow Directions Poor Document 06/21/24 03:30 KH (Rec: 06/21/24 04:09 KH [id number]) Psychiatric Symptoms Assessment Patient sleeping - not awakened for Yes symptom reassessment Document 06/21/24 05:30 KH (Rec: 06/21/24 06:01 KH [id number]) Psychiatric Symptoms Assessment Patient sleeping - not awakened for Yes symptom reassessment Document 06/21/24 07:30 KEB (Rec: 06/21/24 08:27 KEB [id number]) Psychiatric Symptoms Assessment Symptoms/Complaint Altered Mental Status Context New Medications Details of Plan Patient restless and altered. Walked in hallway with . Is uncooperative and does not follow commands, however is not combative. Not eating. Level of Observation Continuous Safety Interventions Constant observation Level of Consciousness Alert,Awake Patient Orientation Name Patient Behavior/Mood Confused,Labile,Restless, Uncooperative Ability to Follow Directions Poor Patient Cognition Impaired Yes Affect Description Anxious,Apprehensive,Labile, Suspicious Patient Appearance Disheveled Delusion Description Present Thought Process: Disorganized,Illogical Depressive Symptoms Changes in Appetite Major Depressive Episode No Feelings of Hopelessness No Suicidal Ideation None Suicide Plan No Plan Homicidal Ideation None Nausea/Vomiting None Document 06/21/24 09:30 KEB (Rec: 06/21/24 09:45 KEB [id number]) Psychiatric Symptoms Assessment Symptoms/Complaint Altered Mental Status Context New Medications Details of Plan Patient same as two hours ago, altered and restless. Level of Observation Continuous Safety Interventions Constant observation Level of Consciousness Alert,Awake Patient Orientation Name Patient Behavior/Mood Confused,Labile,Restless Ability to Follow Directions Poor Patient Cognition Impaired Yes Affect Description Anxious,Apprehensive,Labile, Suspicious Patient Appearance Disheveled Delusion Description Present Thought Process: Disorganized,Illogical Depressive Symptoms Changes in Appetite Major Depressive Episode No Feelings of Hopelessness No Suicidal Ideation None Suicide Plan No Plan Homicidal Ideation None Nausea/Vomiting None Document 06/21/24 11:30 KEB (Rec: 06/21/24 11:49 KEB [id number]) Psychiatric Symptoms Assessment Symptoms/Complaint Altered Mental Status Context New Medications Details of Plan patient remains altered and restless. and son at bedside. Level of Observation Continuous Safety Interventions Constant observation Level of Consciousness Alert,Awake Patient Orientation Name Patient Behavior/Mood Anxious,Confused,Guarded, Labile,Restless,Suspicious, Uncooperative,Wandering Ability to Follow Directions Poor Patient Cognition Impaired Yes Affect Description Anxious,Apprehensive,Labile, Suspicious Patient Appearance Disheveled Delusion Description Present Thought Process: Disorganized,Illogical Major Depressive Episode No Feelings of Hopelessness No Suicidal Ideation None Suicide Plan No Plan Homicidal Ideation None Nausea/Vomiting None
[2024-06-21 13:00] VITALS: BMI 31.7
[2024-06-21] MEDS: LORazepam 2 MG/ML INJ IV (13:15)
[2024-06-21 14:33] VITALS: BP 148/88; PULSE 110; RESP 20; TEMP 36.2; O2SAT 98
[2024-06-21 20:10] VITALS: BP 120/75; PULSE 96; RESP 14; TEMP 36.7; O2SAT 100
--- NOTE | 2024-06-21 21:16 | PC.NURSE ---
cutting machine offbearer: Patient awoke up from sleep, patient is fatigued & calm. Alert & oriented to self, place, time. States that she remembers what happened in past couple days although memories are blended together. Reoriented patient to situation, patient verbalizes understanding and is cooperative with care. Patient spoke with (Tadeo) on the phone. Ate dinner, went to bathroom. Declined IVF, agrees to PO hydration. VSS. Denies pain. 1:[address] for safety. Plan of care ongoing.
[2024-06-22] VITALS: BP 117/57; PULSE 87; RESP 15; TEMP 36.7; O2SAT 97
[2024-06-22 05:38] VITALS: BP 116/73; PULSE 80; RESP 18; TEMP 36.3; O2SAT 96
[2024-06-22 08:43] VITALS: BP 113/67; PULSE 92; RESP 19; TEMP 36.5; O2SAT 98
[2024-06-22 12:00] VITALS: BP 119/69; PULSE 82; RESP 16; TEMP 36.5; O2SAT 98
--- NOTE | 2024-06-22 14:43 | CM.DPNOTE ---
DCP Note COVER MACHINE OPERATOR reviewed EMR. Per RN report, pt seems much closer to baseline mentation today after some sleep. Per RN, report son/spouse will be back later in day. COVER MACHINE OPERATOR attempted to meet with pt, resting/sleeping soundly, allowed to rest. Per hospitalist in morning rounds, pt may dc later today home with family support. Per chart review, pt has PCP appointment Saturday 06/23. Per chart review/RN/provider report, likely no DCP/CM needs P: home when medically stable with family support. CM team will continue to follow as needed PAULINO Magallon
--- NOTE | 2024-06-22 14:51 | P.DS_ITS ---
History of Present Illness History of Present Illness Chief complaint: reaction to medicine Narrative: The patient was transferred to the floor without family members present. She was awake but sedated and not really speaking. History from the emergency physician is as follows: She was a 59-year-old female with a history of depression and anxiety who lives outside of [place] but has a 2nd home in this area. She was brought by family for an acutely altered mental status. The patient has been having intermittent episodes of screaming and acting somewhat manic. The patient also has had escalation of recent insomnia. Notably, she was recently started phentermine for weight loss. She was said to have had a similar reaction when using phentermine in the past. The patient received multiple doses of Ativan and was observed in the ED for over 12 hours. Ultimately the patient was improving but was not stable enough to be discharge. Her agitation was improving. The patient was not able to provide any further details. Discharge Providers Provider Date of admission: 06/21/24 12:04 Discharge Date: 06/22/24 Consults: 06/20/24 21:11 Consult to [facility] [place] - Environmental Issues Instructor Stat Comment: Environmental Issues Instructor Consult needed for:: Other reason (Comment) Discharge provider: Kwadwo Arvizu MD Summary Hospital Course Discharge Diagnosis: 1. Acute toxic encephalopathy, present on admission and resolved. 2. Possible reaction to phentermine with drug toxidrome, present on admission and improved. Hospital Course: Depression presented with acute agitation and manic behavior. The family was concerned that this related to a recent start of phentermine for weight loss. She apparently had a similar reaction to this medication in the past. The patient was treated in the ED for many hours with sedation but had persistent agitation and hypokinesis. She was transferred to the floor where she spent the 1st hour walking the hallways repeatedly. She was quite sedated to the point of not being able to talk. Ultimately she was able to fall asleep and slept through the night. Upon awakening in the morning, she was at her mental baseline. She had no further issues. I met with her and her family and they agreed that she was at her baseline. She was advised not to fill a prescription for lorazepam, or continue phentermine. She has an appointment with her primary care doctor tomorrow, June 23. Status at Discharge Cognitive/behavioral status at discharge: at baseline, oriented Functional status at discharge: independent ambulation Overall status at discharge: patient is back to baseline Time Spent with Patient Time spent: Greater than 30 minutes Exam Vital Signs (past 8 hours): - 06/22/24 08:43 06/22/24 12:00 Temperature 97.7 F 97.7 F Pulse Rate 92 H 82 Respiratory Rate 19 16 Blood Pressure 113/67 119/69 Pulse Oximetry 98 98 Oxygen Flow Rate 0 0 Oxygen Delivery Method Room Air Oxygen Flow Rate 0 Narrative Exam Narrative: NAD, alert and oriented. Fluent speech. Lungs are clear, normal rate and effort. Heart is regular, no murmur gallop or rub. Abdomen is soft, non distended. Extremities are free of edema. Objective Imaging CT scan - head: Radiologist's impression: No acute intracranial pathology. Labs 06/20/24 23:55 06/20/24 23:55 [facility] Social History household members: spouse Smoking Status: Unknown if ever smoked alcohol intake: current Discharge Assessment & Plan Assessment and Plan Assessment: 1. Acute toxic encephalopathy, present on admission and resolved. 2. Possible reaction to phentermine with drug toxidrome, present on admission and improved. Plan of Treatment: She was discharged home with instructions to stop phentermine and not fill a prescription for lorazepam. She also was advised not to use alcohol and we will hold her chronic medications until she discusses the situation with her PCP tomorrow morning, June 23. Discharge Plan Discharge Plan Patient Disposition: Home Provider Discharge Comment: Stable for discharge home. Discharge orders & Medications Prescriptions: Continued bupropion HCl 150 mg tablet extended release 24 hr 150 mg PO DAILY escitalopram oxalate 5 mg tablet 5 mg PO DAILY Discontinued phentermine 37.5 mg PO DAILY Medication counseling provided by Pharmacist: No Discharge Health Status Multidrug resistant organism: No MDRO Diet/Activity/Treatments Diet: Regular Visit Report/Discharge Packet Instructions: DI for Adverse Drug Reaction--Other Stand Alone Forms: Patient Portal/API Discharge Data Attending Provider: Kwadwo Arvizu Admit Date/Time: 06/21/24 12:04 Quality VTE Deep Vein Thrombosis/Pulmonary Embolism Present on Admission: No
== END 2024-06-22 15:05 | disposition home or self-care (01) ==
LOC: ED 06-21 11:06 → AC 06-21 12:05
PROVIDERS: Emergency Medicine; Admitting Provider Hospitalist; Emergency Provider Emergency Medicine; PCP Internal Medicine; Referring Provider Emergency Medicine; Visit Provider Hospitalist
DX: R41.82 Altered mental status, unspecified (principal); G92.8 Other toxic encephalopathy
CPT/HCPCS: 36415; 80053; 80305; 80320; 84443; 85025; 96372; 96374; 99284; G0378; J1630; J2060